=== PATIENT | female | born 1950 | race Native Hawaiian/Other Pacific Islander ===

== ENCOUNTER 2018-10-29 09:46 | Day surgery (SDC) | payer OTHER ==
[2017-09-17 08:24] VITALS: BMI 30.9
[2018-10-29 10:06] LABS: BASO # 0.03 K/mm3 (0.0-2.0); BASO % 0.3 % (0.0-3.0); EOS # 0.3 (0.0-0.7); EOS % 2.5 % (1.5-5.0); GRAN # 6.33 (1.4-6.5); GRAN % 62.2 % (50.0-68.0); HEMOGLOBIN 15.3 g/dL (12.0-16.0); LYMPH # 2.9 (1.2-3.4); LYMPH % 28.8 % (22.0-35.0); MEAN CELL VOLUME 93.1 fl (80.0-105.0); MEAN CORPUSCULAR HEMOGLOBIN 31.2 pg (25.0-35.0); MEAN CORPUSCULAR HGB CONC 33.6 g/dl (31.0-37.0); MEAN PLATELET VOLUME 9.2 fl (7.0-11.0); MONO # 0.6 (0.1-0.6); MONO % 6.2 % (1.0-6.0); RBC 4.9 10^6/uL (3.5-6.1); RED CELL DISTRIBUTION WIDTH 12.6 % (11.5-14.5); WHITE BLOOD COUNT 10.2 10^3/uL (4.5-11.0)
[2018-10-29 10:14] LABS: BLOOD UREA NITROGEN 14 mg/dL (7-21); CALCIUM 9.7 mg/dL (8.4-10.5); GFR NON-AFRICAN AMERICAN > 60; INR 0.99; PARTIAL THROMBOPLASTIN TIME 33.9 Seconds (25.1-36.5); PROTHROMBIN TIME 11.4 SECONDS (9.4-12.5)
[2018-10-29 10:44] VITALS: O2SAT 95
[2018-10-29] MEDS ORDERED: Midazolam 2 MG/2 ML VIAL ONE (11:12)
[2018-10-29] MEDS ORDERED: Lidocaine 1% Inj (20ml) ONE (11:12)
[2018-10-29] MEDS ORDERED: Oxycodone/Acetaminophen 5/325 mg Tab PO PRN (12:08)
[2018-10-29] MEDS ORDERED: Midazolam 2 MG/2 ML VIAL IVP ONE (12:10)
[2018-10-29] MEDS ORDERED: Sodium Chloride 0.45% 1,000 ML IV SCH (12:15)
[2018-10-29 13:12] VITALS: RESP 18; TEMP 97.8
[2018-10-29 13:38] VITALS: BP 131/82; PULSE 80
--- NOTE | 2018-10-29 17:46 | CT ---
PROCEDURE: CT guided omental biopsy. HISTORY: Lung carcinoma. Carcinomatosis on abdominal imaging. Evaluate for metastatic disease versus 2nd primary PHYSICIAN(S): Erasmo Jimenez MD. TECHNIQUE: The relative risks and indications of the procedure were explained to the patient and consent obtained. The patient was placed supine on the CT scanner and preliminary images through the lower abdomen obtained. Conscious sedation and monitoring were provided throughout the procedure by a nurse. There is nodular changes in the omentum, most prominent in the right lower quadrant. A right lower quadrant anterior approach was selected and the area prepped and draped in the usual sterile fashion. 1% Xylocaine was used to anesthetize the skin and soft tissues. A 17-gauge guiding needle was advanced into the nodular omental opacities anterior to the cecum. Its position was confirmed with CT. Using coaxial technique, multiple core biopsies were obtained. The postprocedure images show no evidence of significant hemorrhage. IMPRESSION: 1. CT-guided omental biopsy as described above.
== END 2018-10-29 13:40 | disposition home or self-care (01) ==
LOC: SDS 09:46
PROVIDERS: ATTEND Radiology Vascular & Interventional Radiology
DX: C78.6 Secondary malignant neoplasm of retroperitoneum and peritoneum (principal); C34.90 Malignant neoplasm of unspecified part of unspecified bronchus or lung
CPT/HCPCS: 36415; 49180; 77012; 80048; 85025; 85610; 85730; 88305; 99152; J2250; J2405; J3010; J7030